=== PATIENT | male | born 1950 | race Caucasian/White ===

== ENCOUNTER 2020-07-11 16:08 | Emergency (ER) | payer MEDICARE, OTHER | END 2020-07-11 18:15 | disposition E | LOC: NAV ERS 16:08 | DX: I46.9 Cardiac arrest, cause unspecified (principal); I10 Essential (primary) hypertension; J43.9 Emphysema, unspecified; I48.91 Unspecified atrial fibrillation; Z79.01 Long term (current) use of anticoagulants; Z79.51 Long term (current) use of inhaled steroids; Z79.899 Other long term (current) drug therapy | CPT/HCPCS: 99285 ==